=== PATIENT | female | born 1980 | race Caucasian/White ===

== ENCOUNTER 2016-10-18 12:57 | Emergency (ER) | payer MEDICAID ==
--- NOTE | 2016-10-18 13:17 | Emergency Department Record ---
History of Present Illness - General Chief Complaint: Back Pain/Injury Stated Complaint: BACK PAIN Time Seen by Provider: 10/18/16 13:15 Source: Patient Mode of Arrival: Ambulatory Limitations: No limitations - History of Present Illness Initial Comments: The patient is here due to a 11 ay hx of LUQ and epigastric AP. The pain is sharp and stabbing and intermittently radiates to her L flank area. She has had nausea but denies any vomiting. The patient states she has a hx of PUD and this may be a flare up of that. She denies any lower AP, diarrhea, fever, CP, of SOB. Onset/Timin -: Days(s) Place: Home Radiation: None Severity: Moderate Severity scale (1-10): 8 Quality: Aching, Sharp, Other Consistency: Constant Improves With: None Worsens With: Eating Context: Unknown Associated Symptoms: Difficulty urinating, Nausea/vomiting - Related Data Home Medications Medication Instructions Recorded Confirmed Last Taken Lisinopril [Lisinopril] 10 mg PO DAILY 10/18/16 10/18/16 Unknown Omeprazole [Omeprazole] 40 mg PO DAILY 10/18/16 10/18/16 Unknown Previous Rx's Medication Instructions Recorded Ciprofloxacin HCl [Cipro] 500 mg PO BID #14 tablet 10/18/16 Hydrocodone/Acetaminophen [[place] 1 - 2 each PO .EVERY 4-6 HRS PRN 10/18/16 5-325 Tablet] #15 tablet Allergies Allergy/AdvReac Type Severity Reaction Status Date / Time Penicillins Allergy ANAPHYLAXIS Verified 05/06/14 14:51 Travel Screening - Travel/Exposure Within Last 30 Days Have you traveled within the last 30 days?: No Review of Systems Constitutional: Denies: Chills, Fever Eyes: Denies: Eye discharge ENT: Denies: Congestion Respiratory: Denies: Cough, Dyspnea Past Medical History - SOCIAL HISTORY Smoking Status: Current every day smoker Alcohol Use: Rare Drug Use: None - RESPIRATORY Hx Respiratory Disorders: No - CARDIOVASCULAR Hx Cardio Disorders: Yes Hx Hypertension: Yes - NEURO Hx Neuro Disorders: Yes Hx Headaches: Yes - GI Hx GI Disorders: No - Hx Genitourinary Disorders: No - ENDOCRINE Hx Endocrine Disorders: No - MUSCULOSKELETAL Hx Musculoskeletal Disorders: Yes - PSYCH Hx Psych Problems: No - HEMATOLOGY/ONCOLOGY Hx Hematology/Oncology Disorders: No Family Medical History Any Significant Family History?: Yes Hx Cancer: Grandparents Hx HTN: Grandparents Physical Exam - General General Appearance: Alert, Oriented x3, Cooperative, No acute distress - Head Head exam: Atraumatic, Normocephalic, Normal inspection - Eye Eye exam: Normal appearance, PERRL - ENT Throat exam: Normal inspection. negative: Tonsillar erythema, Tonsillar exudate - Neck Neck exam: Normal inspection, Full ROM. negative: Tenderness - Respiratory Respiratory exam: Normal lung sounds bilaterally. negative: Respiratory distress - Cardiovascular Cardiovascular Exam: Regular rate, Normal rhythm, Normal heart sounds - GI/Abdominal GI/Abdominal exam: Soft, Tenderness (There is mild LUQ and epigastric tenderness.). negative: Distended, Guarding - Extremities Extremities exam: Normal inspection, Full ROM, Normal capillary refill. negative: Tenderness Course Vital Signs 10/18/16 13:04 Temperature 98.4 F Pulse Rate 83 Respiratory 18 Rate Blood Pressure 144/90 Pulse Ox 96 - Reevaluation(s) Reevaluation #1: The patient is doing very well at this time. She denies any new pain or injury. I did explain to her that it appears that she may have a UTI and a mild kidney infection. We will place the patient on Cipro and [place] and have her F/U with her PCP for recheck next week. 10/18/16 15:14 Medical Decision Making - Data Complexity MDM Data: Labs Ordered and/or Reviewed, X-Ray Ordered and/or Reviewed - Lab Data Result diagrams: 10/18/16 13:25 10/18/16 13:25 - Radiology Data Radiology results: Report reviewed (CT: Neg for any acute abnormality) Disposition Disposition: Discharge Clinical Impression: Urinary tract infection Qualifiers: Urinary tract infection type: acute cystitis Hematuria presence: without hematuria Qualified Code(s): N30.00 - Acute cystitis without hematuria Disposition: Home, Self-Care Condition: (1) Good Instructions: Urinary Tract Infection in Women (ED) Additional Instructions: Please drink plenty of fluids. Take the Cipro and [place] as directed. Please see your PCP for recheck early next week if not better. Return to the ER for any increased pain, fever, or vomiting. Prescriptions: Ciprofloxacin HCl [Cipro] 500 mg PO BID #14 tablet Hydrocodone/Acetaminophen [[place] 5-325 Tablet] 1 - 2 each PO .EVERY 4-6 HRS PRN #15 tablet PRN Reason: Pain Forms: Patient Portal Access Time of Disposition: 15:18
[2016-10-18] MEDS ORDERED: ONDANSETRON HCL IV 4 MG/2 ML VIAL IV ONE (13:20)
[2016-10-18] MEDS ORDERED: 0.9 % SODIUM CHLORIDE 1,000 ML BAG IV ONE (13:20)
[2016-10-18] MEDS ORDERED: SUCRALFATE 1 G/10 ML UD PO ONE (13:21)
[2016-10-18 13:40] LABS: BASO % 0.2 % (0-6); EOS % 1.4 % (0-6); GRAN % 70.4 % (47-80); HEMATOCRIT 39.2 % (35.0-47.0); HEMOGLOBIN 12.7 gm/dl (11.6-16.0); LYMPH % 20.6 % (16-45); MEAN CORPUSCULAR HEMOGLOBIN 29.5 pg (27-33); MEAN CORPUSCULAR HGB CONC 32.4 g/dl (32-36); MEAN PLATELET VOLUME 10.6 fl (7.4-10.4); MONO % 7.4 % (0-9); PLATELET COUNT 349 K/uL (130-400); RED BLOOD COUNT 4.31 M/uL (3.80-5.40); RED CELL DISTRIBUTION WIDTH 14.7 % (11.5-14.5); WHITE BLOOD COUNT W/O DIFF 11.5 K/uL (4.2-12.2)
[2016-10-18 13:47] LABS: HCG,QUALITATIVE URINE NEGATIVE (NEGATIVE); URINE APPEARANCE CLEAR; URINE BILIRUBIN NEGATIVE (NEGATIVE); URINE BLOOD MODERATE-NONHEMOLYZE (NEGATIVE); URINE COLOR YELLOW; URINE GLUCOSE (UA) NEGATIVE (NEGATIVE); URINE KETONE NEGATIVE (NEGATIVE); URINE LEUKOCYTE ESTERASE MODERATE (NEGATIVE); URINE NITRITE POSITIVE (NEGATIVE); URINE PROTEIN NEGATIVE (NEGATIVE); URINE UROBILINOGEN 0.2 E.U./dL (0.20 - 1.00)
[2016-10-18 13:48] LABS: URINE BACTERIA 4+; URINE EPITHELIAL CELLS RARE (FEW); URINE WBC 36 - 50 (0-2/hpf)
[2016-10-18 13:51] LABS: ALBUMIN 4.4 gm/dL (3.5-5.0); ALKALINE PHOSPHATASE 66 U/L (38-126); ALT/SGPT 19 U/L (9-52); ANION GAP 11.9 (7-16); AST/SGOT 16 U/L (14-36); BILIRUBIN,TOTAL 0.34 mg/dL (0.2-1.3); BLOOD UREA NITROGEN 15 mg/dL (7-17); CARBON DIOXIDE 22.1 mmol/L (22-30); CREATININE 0.7 mg/dL (0.52-1.04); EST GLOMERULAR FILTRATION RATE > 60 ml/min; GLUCOSE,RANDOM 92 mg/dL (70-110); LIPASE 48 U/L (23-300)
[2016-10-18] MEDS ORDERED: KETOROLAC 30 MG/ML VIAL IVP ONE (13:53)
[2016-10-18] MEDS ORDERED: CEFTRIAXONE SODIUM 1 GM in 0.9 % SODIUM CHLORIDE 100ML 100 ML IVPB ONE (13:55)
== END 2016-10-18 15:38 | disposition home or self-care (01) ==
LOC: ER 12:57
DX: N30.00 Acute cystitis without hematuria (principal); R11.0 Nausea; R10.84 Generalized abdominal pain
CPT/HCPCS: 99284 ×2; 96374; 96375; 83690; 85025; 80076; 80048; 81001; 81025; 74176; J1885; J2405; J7030